=== PATIENT | male | born 1965 | race Caucasian/White ===

== ENCOUNTER 2016-11-11 08:53 | Emergency (ER) | payer SELFPAY ==
[2016-11-11 09:07] VITALS: BP 156/77; TEMP 97; O2SAT 99
[2016-11-11] MEDS ORDERED: SULFA/TRIMETH 800/160 (DS) TAB 1 EA TAB PO ONE (09:15)
[2016-11-11] MEDS ORDERED: TETANUS,DIPHTHERIA,PERTUSSIS 1 EA SYG IM ONE (09:15)
[2016-11-11] MEDS ORDERED: CIPROFLOXACIN 500 MG TAB PO ONE (09:15)
--- NOTE | 2016-11-11 09:18 | ED.PDOC ---
History of Present Illness - General Chief Complaint: Skin/Abrasion/Tear Stated Complaint: stepped on a nail Time Seen by Provider: 11/11/16 09:14 Source: patient Exam Limitations: no limitations - History of Present Illness Initial Comments: the patient is a 51-year-old male who stepped on a nail that went through his shoe into the pad at the base of the left forefoot centrally yesterday. He reports that he did wash on the foot yesterday. He presents today secondary to being sore in the area. No extending erythema. No pus drainage. The wound is already healing over. He reports his last tetanus was approximately 5 years ago. Timing/Duration: momentarily Severity: mild Improving Factors: nothing Worsening Factors: nothing Allergies/Adverse Reactions: Allergies NO KNOWN ALLERGY Allergy (Verified 11/11/16 09:03) Home Medications: Ambulatory Orders Ciprofloxacin [Cipro] 500 mg PO BID #14 tab 11/11/16 Sulfamethoxazole-Trimethoprim [Bactrim Ds 800-160 mg] 1 tab PO BID #14 tab 11/11 Review of Systems - Review of Systems Constitutional: States: no symptoms reported EENTM: States: no symptoms reported Respiratory: States: no symptoms reported Cardiology: States: no symptoms reported Gastrointestinal/Abdominal: States: no symptoms reported Genitourinary: States: no symptoms reported Musculoskeletal: States: no symptoms reported Skin: States: see HPI Neurological: States: no symptoms reported Endocrine: States: no symptoms reported All other Systems: No Change from Baseline Past Medical History (General) - Patient Medical History Hx Seizures: No Hx Stroke: No Hx Dementia: No Hx Asthma: Yes Hx of COPD: No Hx Cardiac Disorders: No Hx Congestive Heart Failure: No Hx Pacemaker: No Hx Hypertension: No Hx Thyroid Disease: No Hx Diabetes: Yes - Pt reports he is unable to afford medication Hx Gastroesophageal Reflux: No Hx Renal Disease: No Hx Cancer: No Hx of HIV: No Hx Hepatitis C: No Hx MRSA: No Surgical History: no surgical history - Vaccination History Hx Tetanus, Diphtheria Vaccination: - > 5yrs Hx Influenza Vaccination: Yes - 2016 Hx Pneumococcal Vaccination: No - Social History Hx Tobacco Use: No Hx Alcohol Use: No Hx Substance Use: No Hx Substance Use Treatment: No Hx Depression: No Hx Physical Abuse: No Hx Emotional Abuse: No - Female History Patient : No Family Medical History - Family History Mother Family History: Unknown Hx Family Hypertension: Yes Hx Family Diabetes: Yes Physical Exam - Physical Exam General Appearance: Alert, Comfortable Eye Exam: bilateral normal Ears, Nose, Throat: hearing grossly normal, normal ENT inspection, normal pharynx Neck: non-tender, full range of motion, supple Respiratory: chest non-tender, lungs clear, normal breath sounds, no respiratory distress Cardiovascular/Chest: normal peripheral pulses, regular rate, rhythm, no edema Peripheral Pulses: radial,right: 2+, radial,left: 2+ Gastrointestinal/Abdominal: non tender, soft Back Exam: normal inspection Extremity: normal range of motion, no pedal edema, no calf tenderness, normal capillary refill, other - foot is sore. Wound appears clean. No evidence of abscess formation. No streaking erythema. Actually very minimal surrounding erythema. The area is tender to palpation. Neurologic: no motor/sensory deficits, alert, normal mood/affect, oriented x 3 Skin Exam: normal color Comments: Vital Signs - 24 hr 11/11/16 09:04 Temperature 97.0 F L Pulse Rate [ 99 H Left Radial] Respiratory 18 Rate Blood Pressure 156/77 [Left Arm] O2 Sat by Pulse 99 Oximetry Progress - Progress Progress: 11/11/16 09:18 the patient is a 51-year-old male with a puncture wound to left distal foot. This occurred yesterday. The wound is already healing over. He will be placed on Bactrim and ciprofloxacin for 7 days. He is also given a tetanus shot here today. He needs to monitor for any increasing redness or drainage. ER warnings were given. He needs to follow-up with his primary care doctor later this week or early next week. Departure - Departure Clinical Impression: Puncture wound of foot Qualifiers: Encounter type: initial encounter Laterality: left Qualifier Code: (S91.332A) Puncture wound without foreign body, left foot, initial encounter Disposition: Discharge to Home or Self Care Condition: Fair Departure Forms: ED Discharge - Pt. Copy, Patient Portal Self Enrollment Instructions: DI for Foot Pain Diet: diabetic diet Activity: increase activity as tolerated Prescriptions: Sulfamethoxazole-Trimethoprim [Bactrim Ds 800-160 mg] 1 tab PO BID #14 tab Ciprofloxacin [Cipro] 500 mg PO BID #14 tab Home Medications: Ambulatory Orders Ciprofloxacin [Cipro] 500 mg PO BID #14 tab 01/11/17 Sulfamethoxazole-Trimethoprim [Bactrim Ds 800-160 mg] 1 tab PO BID #14 tab 11/11 Additional Instructions: the patient is a 51-year-old male with a puncture wound to left distal foot. This occurred yesterday. The wound is already healing over. He will be placed on Bactrim and ciprofloxacin for 7 days. He is also given a tetanus shot here today. He needs to monitor for any increasing redness or drainage. ER warnings were given. He needs to follow-up with his primary care doctor later this week or early next week.
== END 2016-11-11 09:45 | disposition home or self-care (01) ==
LOC: ER 08:53
DX: S91.332A Puncture wound without foreign body, left foot, initial encounter (principal); J45.909 Unspecified asthma, uncomplicated; E11.9 Type 2 diabetes mellitus without complications; Z23 Encounter for immunization; W22.8XXA Striking against or struck by other objects, initial encounter

== ENCOUNTER 2016-12-30 12:52 | Observation (INO) | payer SELFPAY ==
[2016-12-30] MEDS ORDERED: ASPIRIN TABLET 325 MG TAB PO ONE (13:09)
[2016-12-30] MEDS ORDERED: ALUMINUM & MAGNESIUM HYDROXIDE 30 ML UD PO ONE (13:09)
[2016-12-30] MEDS ORDERED: SODIUM CHLORIDE 0.9% 1000ML 1,000 ML IVS ONE (13:10)
--- NOTE | 2016-12-30 13:34 | RAD ---
EXAM DESCRIPTION: Chest,1 View CLINICAL HISTORY: 51 years Male, chest pain nausea, ams COMPARISON: October 04, 2016 TECHNIQUE: Upright portable chest FINDINGS: Lungs clear. Heart normal size. No effusion. IMPRESSION: 1. Normal Electronically signed by: Evan Shabazz MD 12/30/2016 1:34 PM COSTUMER ASSISTANT
[2016-12-30] MEDS ORDERED: INSULIN, REG.(HUMAN) 100 U/ML VIAL IV ONE (13:50)
[2016-12-30] MEDS ORDERED: INSULIN DETEMIR 100 UNITS/ML PEN SUBCU ONE (16:23)
--- NOTE | 2016-12-30 16:57 | CT ---
EXAM: Head CLINICAL INDICATION: 51-year-old male with altered mental status. COMPARISON: None. TECHNIQUE: CT brain without contrast. FINDINGS: The ventricles, sulci, and cisterns are within normal limits. The kelly-white matter differentiation is preserved. There is no mass effect, midline shift, intra- or extra-axial fluid collection/acute hemorrhage. The osseous structures are unremarkable. The paranasal sinuses reveal mucosal thickening and mastoid air cells are clear. IMPRESSION: No acute intracranial abnormalities. Electronically signed by: Xochilt Tong MD 12/30/2016 4:56 PM C[employer]IN[employer]S INSTRUCTOR
[2016-12-30] MEDS ORDERED: LACTATED RINGERS 1,000 ML IVS ONE (17:10)
--- NOTE | 2016-12-30 17:40 | ED.PDOC ---
History of Present Illness - General Chief Complaint: Chest Pain/NC Stated Complaint: chest pain,lack of energy Time Seen by Provider: 12/30/16 13:07 Source: patient, family Exam Limitations: no limitations - History of Present Illness Initial Comments: The patient is a 51-year-old male presenting to the emergency room secondary to a multitude of symptoms present and progressive over the last week. Symptoms include chest pain, abdominal pain, nausea, headache, dizziness , anorexia, generalized weakness. The patient is a diabetic but has chosen to take no medications for it. He reports that he was given insulin here a few days ago for an elevated blood sugar but has not taken any medications or check his blood sugar since. No syncope. Questionable near syncope. He does have some dizziness. Family has been reporting that he has been slurring his speech for the last few days. No real confusion however. No vision changes. No focal neurological changes. Timing/Duration: 1 week Severity: moderate Improving Factors: nothing Worsening Factors: nothing Associated Symptoms: chest pain, loss of appetite, malaise, nausea/vomiting, weakness Allergies/Adverse Reactions: Allergies NO KNOWN ALLERGY Allergy (Verified 11/11/16 09:03) Home Medications: Ambulatory Orders NK [NK] 12/30/16 Review of Systems - Review of Systems Constitutional: States: malaise, weakness EENTM: States: blurred vision Respiratory: States: no symptoms reported Cardiology: States: chest pain Gastrointestinal/Abdominal: States: abdominal pain, nausea Genitourinary: States: frequency Musculoskeletal: States: back pain, joint pain, muscle pain Skin: States: no symptoms reported Neurological: States: headache Endocrine: States: increased thirst Hematologic/Lymphatic: States: no symptoms reported All other Systems: No Change from Baseline Past Medical History (General) - Patient Medical History Hx Seizures: No Hx Stroke: No Hx Dementia: No Hx Asthma: Yes Hx of COPD: No Hx Cardiac Disorders: No Hx Congestive Heart Failure: No Hx Pacemaker: No Hx Hypertension: Yes Hx Thyroid Disease: No Hx Diabetes: Yes - Pt reports he is unable to afford medication Hx Gastroesophageal Reflux: No Hx Renal Disease: No Hx Cancer: No Hx of HIV: No Hx Hepatitis C: No Hx MRSA: No - Vaccination History Hx Tetanus, Diphtheria Vaccination: - > 5yrs Hx Influenza Vaccination: Yes Hx Pneumococcal Vaccination: No - Social History Hx Tobacco Use: No Hx Alcohol Use: No Hx Substance Use: No Hx Substance Use Treatment: No Hx Depression: No Hx Physical Abuse: No Hx Emotional Abuse: No - Female History Patient : No Family Medical History - Family History Mother Family History: Unknown Hx Family Hypertension: Yes Hx Family Diabetes: Yes Physical Exam - Physical Exam General Appearance: Alert - the drowsy, No apparent distress Eye Exam: bilateral normal Ears, Nose, Throat: hearing grossly normal, normal ENT inspection - mucous membranes are mildly dry Neck: non-tender, full range of motion, supple - no nuchal rigidity Respiratory: chest non-tender, lungs clear, normal breath sounds, no respiratory distress, no accessory muscle use Cardiovascular/Chest: normal peripheral pulses, regular rate, rhythm, no edema Peripheral Pulses: radial,right: 2+, radial,left: 2+, dorsalis pedis,right: 2+, dorsalis pedis,left: 2+ Gastrointestinal/Abdominal: non tender, soft Rectal Exam: deferred Back Exam: normal inspection, no CVA tenderness, no vertebral tenderness Extremity: normal range of motion, non-tender, normal inspection, no pedal edema , normal capillary refill Neurologic: alert - he is drowsy. Sensation appears grossly preserved. Strength is grossly preserved. Cranial nerves as tested appear intact., oriented x 3 Skin Exam: normal color Comments: Vital Signs - 24 hr 12/30/16 12/30/16 12/30/16 13:15 14:00 16:15 Temperature 96.8 F L Pulse Rate [ 94 H 89 72 Right Brachial] Respiratory 20 18 Rate Blood Pressure 149/92 142/79 [Right Arm] O2 Sat by Pulse 94 L 94 L Oximetry 12/30/16 17:20 Temperature Pulse Rate [ 85 Right Brachial] Respiratory 20 Rate Blood Pressure 101/80 [Right Arm] O2 Sat by Pulse 96 Oximetry Progress - Progress Progress: 12/30/16 17:42 the patient is a 51-year-old male with diabetes that is noncompliant and essentially not taking anything for his diabetes. He is presenting with severe hyperglycemia. He is having a mild encephalopathy due to that. He is significantly dehydrated and receiving IV fluids. He has received IV insulin and some subcutaneous insulin and blood sugars are improving. I do anticipate that it will be a few days before he is behaving normally again. IV fluids have helped to reduce some of the body aches and abdominal cramping. A flu swab is still pending at this time. He does need diabetic education. We are admitting due to the slurring of the speech and the obvious inability to control his blood sugars. Anticipate a 2-3 day turnaround time on this patient. This patient is essentially a hyperosmolar hyperglycemic nonketotic patient. - Results/Orders Results/Orders: 12/30/16 13:08 Telemetry .CONTINUOUS 12/30/16 13:15 EKG STAT 12/30/16 13:20 GLUCOSE, FINGER STICK Stat 12/30/16 17:10 Lactated Ringers [Lr] 1,000 ml IVS ONCE 12/30/16 17:20 INFLUENZA A & B BY PCR Stat pending at this time Laboratory Results - last 24 hr 12/30/16 12/30/16 12/30/16 13:20 15:50 15:55 WBC 10.1 RBC 6.18 H Hgb 16.5 Hct 48.2 MCV 78.0 L MCH 26.6 L MCHC 34.2 RDW 13.1 Plt Count 165 MPV 11.2 H Absolute Neuts (auto) 4.20 Absolute Lymphs (auto) 5.00 H Absolute Monos (auto) 0.60 Absolute Eos (auto) 0.20 Absolute Basos (auto) 0.10 Neutrophils % 41.9 L Lymphocytes % 49.3 Monocytes % 5.8 Eosinophils % 2.1 Basophils % 0.9 Normal RBC Morphology 2+spherocytes PT 10.2 INR 0.900 PTT (SP) 30.9 D-Dimer, Quantitative < 200 pCO2 41 pO2 75 L HCO3 25.1 ABG pH 7.410 ABG O2 Saturation 97.0 ABG Base Excess 0.9 ABG Deoxyhemoglobin 3.0 Oxyhemoglobin % 95.4 Carboxyhemoglobin % 1.2 Methemoglobin % Sat 0.5 Calc Total Hemoglobin 15.1 Sodium 133 L Potassium 4.1 Chloride 98 L Carbon Dioxide 24 Anion Gap 15.1 BUN 22 H Creatinine 0.69 BUN/Creatinine Ratio 31.9 H POC Glucose 281 H Random Glucose 495 H* Serum Osmolality 291.5 Calcium 9.6 Magnesium 2.0 Total Bilirubin 0.8 AST 16 ALT 18 Alkaline Phosphatase 162 H Creatine Kinase 86 CK-MB (CK-2) 3.3 CK-MB (CK-2) % Not Reportable Troponin I < 0.02 B-Natriuretic Peptide 7.9 Serum Total Protein 7.9 Albumin 4.2 Globulin 3.7 H Albumin/Globulin Ratio 1.1 Amylase 46 TSH 3.12 Urine Color Urine Appearance Urine pH Ur Specific [place] Urine Protein Urine Glucose (UA) Urine Ketones Urine Blood Urine Nitrite Urine Bilirubin Urine Urobilinogen Ur Leukocyte Esterase Urine RBC Urine WBC Ur Epithelial Cells Urine Bacteria Urine Opiates Screen Urine Barbiturates Ur Phencyclidine Scrn U Amphetamin/Meth Scrn U Benzodiazepines Scrn U Cocaine Metab Screen U Cannabinoids Screen 12/30/16 12/30/16 16:55 17:20 WBC RBC Hgb Hct MCV MCH MCHC RDW Plt Count MPV Absolute Neuts (auto) Absolute Lymphs (auto) Absolute Monos (auto) Absolute Eos (auto) Absolute Basos (auto) Neutrophils % Lymphocytes % Monocytes % Eosinophils % Basophils % Normal RBC Morphology PT INR PTT (SP) D-Dimer, Quantitative pCO2 pO2 HCO3 ABG pH ABG O2 Saturation ABG Base Excess ABG Deoxyhemoglobin Oxyhemoglobin % Carboxyhemoglobin % Methemoglobin % Sat Calc Total Hemoglobin Sodium Potassium Chloride Carbon Dioxide Anion Gap BUN Creatinine BUN/Creatinine Ratio POC Glucose Random Glucose Serum Osmolality Calcium Magnesium Total Bilirubin AST ALT Alkaline Phosphatase Creatine Kinase 68 CK-MB (CK-2) 2.8 CK-MB (CK-2) % Not Reportable Troponin I < 0.02 B-Natriuretic Peptide Serum Total Protein Albumin Globulin Albumin/Globulin Ratio Amylase TSH Urine Color Yellow Urine Appearance Clear Urine pH 6.0 Ur Specific [place] 1.010 Urine Protein Negative Urine Glucose (UA) 500 H Urine Ketones 15 H Urine Blood Negative Urine Nitrite Negative Urine Bilirubin Negative Urine Urobilinogen 0.2 Ur Leukocyte Esterase Negative Urine RBC 0 Urine WBC 0-1 Ur Epithelial Cells 0 Urine Bacteria 0 Urine Opiates Screen Negative Urine Barbiturates Negative Ur Phencyclidine Scrn Negative U Amphetamin/Meth Scrn Negative U Benzodiazepines Scrn Negative U Cocaine Metab Screen Negative U Cannabinoids Screen Negative Departure - Departure Clinical Impression: Hyperglycemia, Encephalopathy acute, Dehydration Disposition: Admit Patient Home Medications: Ambulatory Orders NK [NK] 12/30/16 Decision To Admit - Decistion To Admit Decision to Admit Reason: Medical Nature Decision to Admit Date: 12/30/16 Decision to Admit Time: 17:45
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
[2016-12-30] MEDS ORDERED: SODIUM CHLORIDE 0.9% (FLUSH) 10 ML SYG IV PRN (20:12)
[2016-12-30] MEDS ORDERED: DEXTROSE 50% 25 GM/50 ML SYG IV PRN (20:22)
[2016-12-30] MEDS ORDERED: GLUCAGON INJ 1 MG VIAL SUBCU PRN (20:22)
--- NOTE | 2016-12-30 20:27 | PCM.CORE ---
Physician DVT/VTE - Prophylaxis Currently: Patient already on anticoagulation therapy - 5 or more Very High Risk Treatments: Early Ambulation *, Sequential Compression Device
[2016-12-30] MEDS ORDERED: IV SET AND CAP CHANGE INJ INJ SCH (20:30)
[2016-12-30] MEDS ORDERED: SODIUM CHLORIDE 0.9% 10 ML VIAL ONE (20:41)
[2016-12-30] MEDS ORDERED: SODIUM CHLORIDE 0.9% (FLUSH) 10 ML SYG IV SCH (21:00)
[2016-12-30] MEDS: ENOXAPARIN SODIUM 40 MG/0.4 ML SYG SUBCU SCH (21:31)
[2016-12-30] MEDS: INSULIN LISPRO 100 UNITS/ML PEN SUBCU SCH (21:31)
[2016-12-30] MEDS: PANTOPRAZOLE SODIUM IV 40 MG VIAL IV SCH (21:32)
[2016-12-30] MEDS: ACETAMINOPHEN 325 MG TAB PO PRN (21:41)
[2016-12-30] MEDS ORDERED: LACTATED RINGERS 0 ML ONE (23:11)
[2016-12-30] MEDS: KCL 20 MEQ/NS 1,000 ML IVS PRN (23:15)
[2016-12-30] MEDS: IBUPROFEN 400 MG TAB PO PRN (23:30)
[2016-12-31] MEDS: ACETAMINOPHEN 325 MG TAB PO PRN ×2 (04:31→20:44)
[2016-12-31] MEDS ORDERED: SODIUM CHLORIDE 0.9% 10 ML VIAL IV PRN (07:19)
[2016-12-31] MEDS: INSULIN LISPRO 100 UNITS/ML PEN SUBCU SCH ×4 (07:35→20:47)
[2016-12-31] MEDS: KCL 20 MEQ/NS 1,000 ML IVS PRN (07:58)
[2016-12-31] MEDS ORDERED: metFORMIN XR 500 MG TAB.ER.24 PO SCH (12:30)
[2016-12-31] MEDS: metFORMIN XR 500 MG TAB.ER.24 PO SCH ×2 (12:36→16:32)
--- NOTE | 2016-12-31 13:57 | PN ---
SUPERVISING PHYSICIAN: Yuni Casillas MD DATE: 12/31/16 SUBJECTIVE: The patient is walking around in his hospital room. He complains of a mild headache and he has been taking Tylenol and ibuprofen for it that usually relieves it. He also complains of some numbness in his fingers and feet that he realizes is from his diabetes that is out of control. Otherwise, he denies any nausea, vomiting, diarrhea, chest pain, or shortness of breath. OBJECTIVE: VITAL SIGNS: Afebrile. Heart rate 70. Blood pressure 133/83. Respiratory rate 18. O2 saturation 94% on room air. LUNGS: Clear to auscultation bilaterally. CARDIAC: Regular rate and rhythm. ABDOMEN: Soft, nontender, nondistended. Bowel sounds are positive. EXTREMITIES: No cyanosis, clubbing or edema. NEUROLOGIC: Awake, alert and oriented times three. LABORATORY: CBC is basically within normal limits. Chemistries are basically within normal limits with the exception of his glucose has run between 240 to 391. Hemoglobin A1c 15. All other labs and films have been reviewed via the EMR. ASSESSMENT: 1. Hyperglycemia without acidosis. 2. Diabetes mellitus, type 2 with poor compliance and hemoglobin A1c of 15. 3. Elevated liver function tests, now resolved. 4. History of asthma. PLAN: I have started him on metformin 2000 mg daily. I have also increased his Levemir tonight to 20 units at h.s. Yaa Skelton, our Configuration Technician , has initiated [facility] and we will get him in for followup care to [facility]. I have also ordered diabetic teaching. We had a long discussion about control of his diabetes and I will give him a Glucometer. Hopefully we can discharge him tomorrow and have close followup at [facility]. Dr. Casillas is the collaborating physician and available for consultation. #[id number] [facility]
[2016-12-31] MEDS: IBUPROFEN 400 MG TAB PO PRN (16:30)
[2016-12-31] MEDS: PANTOPRAZOLE SODIUM IV 40 MG VIAL IV SCH (20:43)
[2016-12-31] MEDS: SODIUM CHLORIDE 0.9% (FLUSH) 10 ML SYG IV SCH (20:43)
[2016-12-31] MEDS: ENOXAPARIN SODIUM 40 MG/0.4 ML SYG SUBCU SCH (20:44)
[2016-12-31] MEDS ORDERED: INSULIN DETEMIR 100 UNITS/ML PEN SUBCU SCH (21:00)
[2017-01-01] MEDS: INSULIN LISPRO 100 UNITS/ML PEN SUBCU SCH ×2 (08:07→11:59)
[2017-01-01] MEDS: metFORMIN XR 500 MG TAB.ER.24 PO SCH (08:08)
[2017-01-01] MEDS: SODIUM CHLORIDE 0.9% (FLUSH) 10 ML SYG IV SCH (09:32)
[2017-01-01 14:45] VITALS: BP 139/87; TEMP 97.2; O2SAT 96
[2017-01-01] MEDS ORDERED: PANTOPRAZOLE SODIUM TAB 40 MG PO SCH (16:30)
--- NOTE | 2017-01-05 09:18 | DS ---
SUPERVISING PHYSICIAN: Blake Morataya MD DISCHARGE DIAGNOSIS: 1. Hyperglycemia without acidosis. 2. Diabetes mellitus, type 2, with poor compliance and hemoglobin A1c of 15. 3. Elevated liver function tests, now resolved. 4. History of asthma. HISTORY OF PRESENT ILLNESS: This is a 51-year-old male patient who presented to the Emergency Room feeling very weak and dizzy with a blood sugar of 495. He has had a history of diabetes mellitus since 2012 with very poor compliance. He was quite lethargic at the time he came to the Emergency Room. His sodium was 133, chloride 98, BUN 22, alkaline phosphatase 162, globulin 3.7. WBC were 10.1, pH 7.41, PCO2 41. Urine showed 500 urine glucose as well as [address] of his head showed no acute intracranial abnormalities. He was given fluids in the Emergency Room as well as 10 units of Regular insulin IV. Later on in the Emergency Room, he was given 10 units of Levemir and I was called for admission. HOSPITAL COURSE: The patient was put on sliding scale insulin as well as given extra IV fluids. He had extensive diabetic education. The first night, he was put on 20 units of Levemir. Yaa Skelton, [employer] Professional, helped him get [facility] so he could use [facility] as well as get help with his medications. We had a long discussion about controlling his diabetes and he received a Glucometer. On the second night, we increased his long acting insulin to 25 units at night. He also was started on metformin. He has had no complaints of dizziness or decreased level of consciousness. His blood sugars have come down from 358 to a little over 200. He will need close followup at [facility] and he agrees to that. He will be discharged today. DISCHARGE PLAN: He will be discharged in stable condition. He is to consume a diabetic diet. He is to check his fasting blood sugar in the morning and record as well as prior to meals and at bedtime. He is to get Levemir 25 units at night. He is to followup with [facility] on 01/05/17 with Gracie Tom. He was sent home with his Levemir pen from the hospital, so he should have enough for several days of insulin. He is to return to the hospital or call [facility] for any further problems. DISCHARGE MEDICATIONS: 1. Levemir 25 units at bedtime. 2. Metformin [address] Morataya is the collaborating physician and available for consultation. #[id number] [facility]
== END 2017-01-01 15:30 | disposition home or self-care (01) ==
LOC: ER 12:52 → MS 18:47
PROVIDERS: ADMIT Nurse Practitioner Acute Care; ATTEND Nurse Practitioner Acute Care
DX: E11.65 Type 2 diabetes mellitus with hyperglycemia (principal); R79.89 Other specified abnormal findings of blood chemistry; E86.0 Dehydration; R07.89 Other chest pain; R42 Dizziness and giddiness; R41.82 Altered mental status, unspecified; F10.21 Alcohol dependence, in remission; F14.21 Cocaine dependence, in remission; Z91.14 Patient's other noncompliance with medication regimen; Z87.09 Personal history of other diseases of the respiratory system
CPT/HCPCS: 36415 ×4; 36416 ×7; 70450; 71010; 80053 ×2; 80307; 81001; 82150; 82550 ×2; 82553 ×2; 82948 ×11; 83036; 83735; 83880; 84443; 84484 ×2; 85025 ×2; 85379; 85610; 85730; 87502; 93005; 94760 ×8; 96361 ×3; 96372 ×4; 96374; 96375; 96376; 99284; J1650 ×2; J1815 ×2; J3480 ×2; J7030; J7120